=== PATIENT | female | born 1970 | race African-American/Black ===

== ENCOUNTER 2019-05-14 17:28 | Emergency (ER) | payer BC, MEDICARE, SELFPAY ==
[2019-05-14 17:38] VITALS: BP 131/60; PULSE 96; RESP 20; TEMP 36.4; O2SAT 100
--- NOTE | 2019-05-14 17:56 | ED.EYEPROB ---
HPI - Eye Problem General Chief complaint: Eye Problems Stated complaint: eye irritation Time Seen by Provider: 05/14/19 17:56 Source: patient and RN notes reviewed History of Present Illness HPI Narrative: Patient is a 48-year-old female presents the urgent care with complaints of right eye irritation, redness, itchiness. Patient states it started approximately 2 hours ago. Denies any known trauma or injury. Denies any known foreign body. Denies any matting or changes in vision. No other acute complaints. No acute distress noted. Patient read the plan of care. Related Data Home Medications Medication Instructions Recorded Confirmed exenatide microspheres [Bydureon 2 mg SUBCUT WEEKLY 03/05/19 05/14/19 BCise] ferrous sulfate 325 mg PO DAILY 03/05/19 05/14/19 insulin glargine U-300 conc 70 unit SUBCUT DAILY 03/05/19 05/14/19 [[employer] SoloStar U-300 Insulin] lisinopril-hydrochlorothiazide 1 tablet PO DAILY 03/05/19 05/14/19 metformin 1,000 mg PO BID 03/05/19 05/14/19 simvastatin 40 mg PO DAILY 03/05/19 05/14/19 Allergies Allergy/AdvReac Type Severity Reaction Status Date / Time Penicillins Allergy Unknown ITCHING Verified 05/14/19 17:43 Sulfa (Sulfonamide Allergy Unknown Unknown Verified 05/14/19 17:43 Antibiotics) Review of Systems Review of Systems: Narrative: CONSTITUTIONAL: Denies fever, chills, or sweats. EYES: Reports of right eye redness and itchiness ENT: Denies rhinorrhea, congestion, sore throat, or otalgia. CARDIOVASCULAR: Denies chest pain, palpitations, or edema. RESPIRATORY: Denies cough or dyspnea. GASTROINTESTINAL: Denies abdominal pain, nausea, vomiting, or diarrhea. GENITOURINARY: Denies dysuria or hematuria. SKIN: Denies rash or itching. MUSCULOSKELETAL: Denies back pain, joint pain, or myalgia. NEUROLOGIC: Denies headache, numbness, or weakness. [facility] Social History Social History Smoking status: Never smoker Alcohol intake: never Comments At the time of my signature, I reviewed and agree with the nursing past medical, surgical, social, and family history. There is no relevant family history pertinent to the patient complaint. Exam Narrative: Exam Narrative: GENERAL: This is a well-nourished, well-developed patient, in no apparent distress. HEAD: normocephalic, atraumatic. EYES: PERRL. Sclera clear/white. Vision is grossly intact. Mild injected right conjunctive a without obvious trauma or injury or foreign body. No hordeolum noted. No drainage noted. EARS: External ears normal NOSE: External nose normal with no obvious nasal discharge THROAT: Mucous membranes moist NECK: Neck supple CARDIOVASCULAR: Regular rate and rhythm without murmurs, gallops, or rubs. RESPIRATORY: Clear to auscultation. Breath sounds equal bilaterally. No wheezes, rales, or rhonchi. SKIN: warm, intact with no suspicious lesions or rash, good texture and turgor. NEURO: awake, alert, and oriented to person, place and time. There were no obvious focal neurologic abnormalities. EXTREMITIES: No clubbing, cyanosis, or edema. Course Vital Signs Vital signs: Vital Signs Temperature 97.5 F L 05/14/19 17:38 Pulse Rate 96 05/14/19 17:38 Respiratory Rate 05/14/19 17:38 Blood Pressure 131/60 05/14/19 17:38 Pulse Oximetry 100 05/14/19 17:38 Temperature 97.5 F L 05/14/19 17:38 Pulse Rate 96 05/14/19 17:38 Respiratory Rate 20 05/14/19 17:38 Blood Pressure 131/60 05/14/19 17:38 Pulse Oximetry 100 05/14/19 17:38 Reviewed MDM - Eye Problem MDM Narrative Medical decision making narrative: Advised the patient to use eyedrops to the right eye as directed. Be sure to clean the tip off with an alcohol swab in between applications. May use Claritin or Benadryl as needed for itchiness or irritation. Try not to rub the eye. May use warm compress to the right eye as needed. Follow-up with PCP within 2 to 5 days if worsenin
== END 2019-05-14 18:08 | disposition home or self-care (01) ==
PROVIDERS: Emergency Provider Nurse Practitioner Family
DX: H10.9 Unspecified conjunctivitis (principal); E78.00 Pure hypercholesterolemia, unspecified; I10 Essential (primary) hypertension; E11.9 Type 2 diabetes mellitus without complications
CPT/HCPCS: 99213; G0463

== ENCOUNTER 2021-04-22 13:22 | Emergency (ER) | payer BC, MEDICARE, SELFPAY ==
[2021-04-22 13:32] VITALS: BP 154/86; PULSE 97; RESP 16; TEMP 36.4; O2SAT 100
--- NOTE | 2021-04-22 13:38 | ED.URI ---
HPI - URI/Sore Throat General Chief Complaint: Upper Respiratory Infection Stated Complaint: Cough/congestion Time Seen by Provider: 04/22/21 13:53 Source: patient and RN notes reviewed Mode of arrival: ambulatory Limitations: no limitations History of Present Illness HPI Narrative: 50-year-old female presents with concern for cough, congestion, body aches for 2 to 3 days. Reports her daughter just tested positive for Covid. Reports she has been immunized and booster. Reports her booster was approximately 1 week ago. Reports has been taking Janiya ALLEN elicited complaint: cough and sore throat Related Data Home Medications Medication Instructions Recorded Confirmed exenatide microspheres [Bydureon 2 mg SUBCUT WEEKLY 03/05/19 05/14/19 BCise] ferrous sulfate 325 mg PO DAILY 03/05/19 05/14/19 insulin glargine U-300 conc 70 unit SUBCUT DAILY 03/05/19 05/14/19 [Toujeo SoloStar U-300 Insulin] metformin 1,000 mg PO BID 03/05/19 05/14/19 simvastatin 40 mg PO DAILY 03/05/19 05/14/19 glimepiride mg 04/22/21 hydrochlorothiazide 04/22/21 losartan 04/22/21 pantoprazole PO 04/22/21 Allergies Allergy/AdvReac Type Severity Reaction Status Date / Time Penicillins Allergy Unknown ITCHING Verified 04/22/21 13:37 Sulfa (Sulfonamide Allergy Unknown Unknown Verified 04/22/21 13:37 Antibiotics) Review of Systems Review of Systems: CONSTITUTIONAL: Reports malaise. Denies chills, sweats, or fever. EYES: Denies visual changes, redness, or discharge. ENT: Denies rhinorrhea, congestion, sinus pain, otalgia and sore throat. CARDIOVASCULAR: Denies chest pain, palpitations, or edema. RESPIRATORY: Reports cough. Denies dyspnea. GASTROINTESTINAL: Denies abdominal pain, nausea, vomiting, diarrhea SKIN: Denies rash or itching. MUSCULOSKELETAL: Reports myalgia. NEUROLOGIC: Denies headache. All systems reviewed & are unremarkable except as noted in HPI and below PMFSH Social History Social History Smoking status: Never smoker Alcohol intake: never Comments At time of signature, agree with nursing past medical, surgical, social and family history. There is no relevant family history pertinent to the presenting complaint Exam Narrative: GENERAL: Well-appearing, well-nourished, and in no acute distress. HEAD: Normocephalic EYES: PERRLA, conjunctivae clear ENT: Nares clear. Mucous membranes moist. TM pearly mcleod with dull light reflex bilaterally; no tragal tenderness. Oropharynx not erythematous without lesions. Tonsils not enlarged and without exudate, no drooling, no hoarseness, no trismus, uvula midline. NECK: Supple. No lymphadenopathy CHEST: Clear to auscultation, breath sounds equal. No wheezing, rhonchi, rales, or stridor. No respiratory distress, speaks in full sentences. HEART: Regular rate and rhythm. No murmur heard. SKIN: Warm, dry, no rash. NEURO: Alert and oriented x3. PSYCH: Normal mood and affect Course Course Emergency Course: Patient is aware of diagnosis, understands and agrees to treatment plan. Anticipatory guidance given. Patient agrees to follow-up as directed and is aware of reasons to seek care at the emergency department. Portions of this record may have been created with voice recognition software Level of Care: Express Care Visit Vital Signs Vital signs: Vital Signs Temperature 97.5 F L 04/22/21 13:32 Pulse Rate 97 04/22/21 13:32 Respiratory Rate 16 04/22/21 13:32 Blood Pressure 154/86 H 04/22/21 13:32 Pulse Oximetry 100 04/22/21 13:32 Temperature 97.5 F L 04/22/21 13:32 Pulse Rate 97 04/22/21 13:32 Respiratory Rate 16 04/22/21 13:32 Blood Pressure 154/86 H 04/22/21 13:32 Pulse Oximetry 100 04/22/21 13:32 Reviewed. MDM - URI/Sore Throat MDM Narrative Medical decision making narrative: Differential diagnosis considered: Carballo virus, strep pharyngitis, allergic rhinitis, upper respiratory tract in
== END 2021-04-22 14:19 | disposition home or self-care (01) ==
PROVIDERS: Emergency Provider Nurse Practitioner; PCP Family Medicine
DX: J06.9 Acute upper respiratory infection, unspecified (principal); Z20.822 Contact with and (suspected) exposure to COVID-19; E78.00 Pure hypercholesterolemia, unspecified; I10 Essential (primary) hypertension; E11.9 Type 2 diabetes mellitus without complications
CPT/HCPCS: 87426; 99213; C9803; G0463

== ENCOUNTER 2021-10-13 14:49 | Emergency (ER) | payer OTHER, SELFPAY ==
[2021-10-13 14:58] VITALS: BP 154/103; PULSE 85; RESP 16; TEMP 36.6; O2SAT 100
[2021-10-13 15:03] VITALS: BP 154/103; PULSE 85; RESP 16; TEMP 36.6; O2SAT 100
--- NOTE | 2021-10-13 15:05 | ED.GENADULT ---
HPI - General Adult General Chief complaint: Extremity Problem,Nontraumatic Stated complaint: hip pain Time Seen by Provider: 10/13/21 15:05 Source: patient Mode of arrival: ambulatory Limitations: no limitations History of Present Illness HPI narrative: Patient presents today complaining of low back pain radiating to her right hip x2 days. Pain began after she had been moving heavy objects at home. Denies numbness or tingling, loss of bowel or bladder control. She currently rates her pain 6/10 and has tried no medication for symptoms prior to arrival. Patient does have a prescription for Robaxin at home for previous shoulder issue, but has not been taking it. Believes she has 1 refill left. Related Data Home Medications Medication Instructions Recorded Confirmed exenatide microspheres 2 mg/0.85 2 mg subcut WEEKLY 03/05/19 05/14/19 mL subcutaneous auto-injector ([employer]duBio[employer] BCise) ferrous sulfate 325 mg (65 mg 325 mg PO DAILY 03/05/19 05/14/19 iron) tablet insulin glargine U-300 conc 300 70 unit subcut DAILY 03/05/19 05/14/19 unit/mL (1.5 mL) subcutaneous pen ([employer] SoloStar U-300 Insulin) metformin 500 mg tablet,extended 1,000 mg PO BID 03/05/19 05/14/19 release 24 hr simvastatin 40 mg tablet 40 mg PO DAILY 03/05/19 05/14/19 glimepiride 4 mg tablet mg 04/22/21 hydrochlorothiazide 25 mg tablet 04/22/21 losartan 50 mg tablet 04/22/21 pantoprazole 40 mg tablet,delayed PO 04/22/21 release Allergies Allergy/AdvReac Type Severity Reaction Status Date / Time Penicillins Allergy Unknown ITCHING Verified 04/22/21 13:37 Sulfa (Sulfonamide Allergy Unknown Unknown Verified 04/22/21 13:37 Antibiotics) Review of Systems Review of Systems: CONSTITUTIONAL: Denies body aches, fever, chills, or sweats. EYES: Denies visual changes, redness, or discharge. ENT: Denies rhinorrhea, congestion, sore throat, or otalgia. CARDIOVASCULAR: Denies chest pain, palpitations, or edema. RESPIRATORY: Denies cough or dyspnea. GASTROINTESTINAL: Denies abdominal pain, nausea, vomiting, or diarrhea. GENITOURINARY: Denies dysuria or hematuria. SKIN: Denies rash, itching, or wounds. MUSCULOSKELETAL: + Low back pain, right hip pain NEUROLOGIC: Denies headache, numbness, tingling, or weakness. PSYCH: Denies depression or anxiety. [facility] Past Medical History Medical History (Updated 10/13/21 @ 15:23 by Robyn Burden, [facility], ) Diabetes Social History Social History Smoking status: Never smoker Alcohol intake: never Comments At time of signature, I have reviewed and agree with nursing past medical, surgical, social and family history unless otherwise noted. Please see nursing chart for further information. There is no relevant family history pertinent to the presenting complaint Exam Narrative: GENERAL: Well-appearing, well-nourished, and in no acute distress. HEAD: Normocephalic, atraumatic. EYES: EOMI. No redness or drainage. Conjunctivae normal. ENT: Mucous membranes pink and moist. NECK: Normal AROM. CHEST: No respiratory distress. MUSCULOSKELETAL: No bony tenderness of the spine. Patient has right lower lumbar paraspinal muscle tenderness that extends to the right SI joint and down the lateral right hip to the right thigh. Distal sensation intact bilaterally. Saddle sensation intact. Capillary refill normal. Pedal pulses normal. Dorsiflexion and plantarflexion equal and strong against resistance. EXTREMITIES: Normal range of motion. No edema. SKIN: Warm, dry, no rash. Capillary refill normal. Normal skin turgor. NEURO: No focal deficits. Alert and oriented x3. Gait steady. PSYCH: Normal affect. No signs of depression or anxiety. Course Course Level of Care: Express Care Visit Vital Signs Vital signs: Vital Signs Temperature 97.8 F 10/13/21 14:58 Pulse Rate 85 10/13/21 14:58 Respiratory Rate 16 10/13/21 14:58
== END 2021-10-13 15:30 | disposition home or self-care (01) ==
PROVIDERS: Emergency Provider Nurse Practitioner; PCP Family Medicine
DX: M54.41 Lumbago with sciatica, right side (principal); E11.9 Type 2 diabetes mellitus without complications
CPT/HCPCS: 99213; G0463

== ENCOUNTER 2021-11-09 10:02 | Emergency (ER) | payer OTHER, SELFPAY ==
[2021-11-09 10:18] VITALS: BP 179/95; PULSE 77; RESP 20; TEMP 36.3; O2SAT 100
[2021-11-09 10:26] VITALS: BP 179/95; PULSE 77; RESP 20; TEMP 36.3; O2SAT 100
--- NOTE | 2021-11-09 10:37 | ED.GENADULT ---
HPI - General Adult General Chief complaint: Extremity Problem,Nontraumatic Stated complaint: Left leg Cramps Time Seen by Provider: 11/09/21 10:18 Source: patient Mode of arrival: ambulatory Limitations: no limitations History of Present Illness HPI narrative: Patient presents today complaining of a 2-day history of painful cramping to her left thigh that is intermittent. Patient states, I can feel the nerve jumping . Patient states at times the pain radiates to her toes as well. She currently rates her pain 7/10 at rest, which increases when she walks or moves around. States the pain decreases when she pinches the flash and her very inner thigh. She currently takes naproxen and Robaxin, which does provide some mild relief. Patient has been diagnosed with sciatica in the past. She does report some mild low back pain that has occurred along with her leg pain. Related Data Home Medications Medication Instructions Recorded Confirmed ferrous sulfate 325 mg (65 mg 325 mg PO DAILY 03/05/19 11/09/21 iron) tablet metformin 500 mg tablet,extended 1,000 mg PO BID 03/05/19 11/09/21 release 24 hr simvastatin 40 mg tablet 40 mg PO DAILY 03/05/19 11/09/21 glimepiride 4 mg tablet 4 mg PO BID 04/22/21 11/09/21 hydrochlorothiazide 25 mg tablet 25 mg PO DAILY 04/22/21 11/09/21 losartan 50 mg tablet 50 mg PO DAILY 04/22/21 11/09/21 pantoprazole 40 mg tablet,delayed 40 mg PO DAILY 04/22/21 11/09/21 release gabapentin 100 mg capsule 100 mg PO HS 11/09/21 11/09/21 methocarbamol 750 mg tablet 750 mg PO TID PRN Muscle Spasm 11/09/21 11/09/21 naproxen 500 mg tablet 500 mg PO DAILY 11/09/21 11/09/21 semaglutide 0.25 mg or 0.5 mg (2 0.25 mg subcut WEEKLY 11/09/21 11/09/21 mg/1.5 mL) subcutaneous pen injector (Ozempic) Allergies Allergy/AdvReac Type Severity Reaction Status Date / Time Penicillins Allergy Unknown ITCHING Verified 11/09/21 10:18 Sulfa (Sulfonamide Allergy Unknown Unknown Verified 11/09/21 10:18 Antibiotics) Review of Systems Review of Systems: CONSTITUTIONAL: Denies body aches, fever, chills, or sweats. EYES: Denies visual changes, redness, or discharge. ENT: Denies rhinorrhea, congestion, sore throat, or otalgia. CARDIOVASCULAR: Denies chest pain, palpitations, or edema. RESPIRATORY: Denies cough or dyspnea. GASTROINTESTINAL: Denies abdominal pain, nausea, vomiting, or diarrhea. GENITOURINARY: Denies dysuria or hematuria. SKIN: Denies rash, itching, or wounds. MUSCULOSKELETAL: Denies joint pain. + Left leg cramping, low back pain NEUROLOGIC: Denies headache, numbness, tingling, or weakness. PSYCH: Denies depression or anxiety. [facility] Past Medical History Medical History (Updated 11/09/21 @ 10:46 by Robyn Burden, [employer], ) Diabetes High cholesterol Social History Social History Smoking status: Never smoker Alcohol intake: never Comments At time of signature, I have reviewed and agree with nursing past medical, surgical, social and family history unless otherwise noted. Please see nursing chart for further information. There is no relevant family history pertinent to the presenting complaint Exam Narrative: GENERAL: Well-appearing, well-nourished, and in no acute distress. HEAD: Normocephalic, atraumatic. EYES: EOMI. No redness or drainage. Conjunctivae normal. ENT: Mucous membranes pink and moist. NECK: Normal AROM. CHEST: No respiratory distress. MUSCULOSKELETAL: No bony tenderness of the spine. Left lower lumbar paraspinal muscle tenderness that extends to the left buttock and around to the left lateral hip. Mild muscular tenderness to the left anterior, lateral, and medial thigh. Distal sensation intact. Saddle sensation intact. Capillary refill normal. Pedal pulse normal. Color normal. -homans sign. No tenderness of the calf or popliteal fossa. No edema to the leg noted. EXTREMITIES: Normal range of motion.
== END 2021-11-09 10:49 | disposition home or self-care (01) ==
PROVIDERS: Emergency Provider Nurse Practitioner; PCP Family Medicine
DX: M54.42 Lumbago with sciatica, left side (principal); E11.9 Type 2 diabetes mellitus without complications; E78.00 Pure hypercholesterolemia, unspecified
CPT/HCPCS: 99213; G0463

== ENCOUNTER 2022-03-16 14:00 | Emergency (ER) | payer OTHER, SELFPAY ==
[2022-03-16 14:06] VITALS: BP 157/87; PULSE 108; RESP 18; TEMP 37.6; O2SAT 99
--- NOTE | 2022-03-16 14:22 | ED.URI ---
HPI - URI/Sore Throat General Chief Complaint: Upper Respiratory Infection Stated Complaint: COUGH/HEADACHE/BODY ACHES/DIARRHEA Time Seen by Provider: 03/16/22 14:23 Source: patient, RN notes reviewed and old records reviewed Mode of arrival: ambulatory Limitations: no limitations History of Present Illness HPI Narrative: 51-year-old female presents to the [facility] with complaints of cough, headache, body aches and diarrhea. Cough, headache, body aches started Tuesday, 2 days ago. Diarrhea started today. Had taking Coricidin HBP P 1 time. Just got back from [place]. Related Data Home Medications Medication Instructions Recorded Confirmed ferrous sulfate 325 mg (65 mg 325 mg PO DAILY 03/05/19 03/16/22 iron) tablet metformin 500 mg tablet,extended 1,000 mg PO BID 03/05/19 03/16/22 release 24 hr simvastatin 40 mg tablet 40 mg PO DAILY 03/05/19 03/16/22 glimepiride 4 mg tablet 4 mg PO BID 04/22/21 03/16/22 hydrochlorothiazide 25 mg tablet 25 mg PO DAILY 04/22/21 03/16/22 losartan 50 mg tablet 50 mg PO DAILY 04/22/21 03/16/22 pantoprazole 40 mg tablet,delayed 40 mg PO DAILY 04/22/21 03/16/22 release gabapentin 100 mg capsule 100 mg PO HS 11/09/21 03/16/22 methocarbamol 750 mg tablet 750 mg PO TID PRN Muscle Spasm 11/09/21 03/16/22 naproxen 500 mg tablet 500 mg PO DAILY 11/09/21 03/16/22 semaglutide 0.25 mg or 0.5 mg (2 0.25 mg subcut WEEKLY 11/09/21 03/16/22 mg/1.5 mL) subcutaneous pen injector (Ozempic) Allergies Allergy/AdvReac Type Severity Reaction Status Date / Time Penicillins Allergy Unknown ITCHING Verified 03/16/22 14:23 Sulfa (Sulfonamide Allergy Unknown Unknown Verified 03/16/22 14:23 Antibiotics) Review of Systems Review of Systems: All systems reviewed & are unremarkable except as noted in HPI and below Constitutional: Constitutional: Reports as per HPI, Reports body ache(s), Reports fatigue and Reports headache(s) Eyes: Eyes: Reports no additional eye complaints ENT: Reports system reviewed and no additional complaints, except as documented and Reports nasal discharge Cardiovascular: Cardiovascular: Reports no additional cardiovascular complaints, Denies chest pain and Denies dyspnea Respiratory: Respiratory: Reports as per HPI, Denies chest congestion, Reports cough and Denies dyspnea Gastrointestinal: Gastrointestinal: Reports no additional gastrointestinal complaints Musculoskeletal: Musculoskeletal: Reports no additional musculoskeletal complaints Integumentary/Breasts: Skin/Breast: Reports system reviewed and no additional complaints, except as docu Neurologic: Reports system reviewed and no additional complaints, except as documented Psychiatric: Psychiatric: Reports no additional psychiatric complaints Allergic/Immunologic: Allergic/Immunologic: Reports no additional allergic/immunologic complaints PMFSH Past Medical History Medical History (Updated 03/16/22 @ 14:36 by Michaela Vergara APRN) Anemia Diabetes H/O gastroesophageal reflux (GERD) High cholesterol History of high blood pressure Social History Social History Smoking status: Never smoker Alcohol intake: never Comments At the time of my signature, I reviewed and agree with the nursing past medical, surgical, social, and family history. There is no relevant family history pertinent to the patient complaint. Exam Const: General: cooperative, healthy appearing, comfortable, no acute distress, well developed, alert and average body habitus Nutritional Appearance: well nourished and obese Orientation/consciousness: patient oriented x3 Limitations: no limitations HENMT: Head: normal to inspection Ears: hearing grossly normal bilaterally Face/Nose/Sinus: Normal external nose present, Normal nares present, Normal nasal mucous membranes and turbinates present and normal facial exam Face and sinus: normal facial exam Mouth: Yes Normal oral and pa
== END 2022-03-16 14:53 | disposition home or self-care (01) ==
PROVIDERS: Emergency Provider Nurse Practitioner; PCP Family Medicine
DX: J01.90 Acute sinusitis, unspecified (principal); E11.9 Type 2 diabetes mellitus without complications
CPT/HCPCS: 87804; 99213; G0463

== ENCOUNTER 2022-10-04 13:09 | Emergency (ER) | payer OTHER, SELFPAY ==
--- NOTE | ~2022-10-04 | XR_ITS ---
Right Knee Technique: AP, lateral, and sunrise views were obtained. Clinical History: Pain Findings: No fracture or dislocation is seen. Osseous alignment is anatomic. There is minimal tricomp artmental degenerative spurring. Soft tissues are unremarkable. No joint effusion is seen. Impression: Minimal tricompartmental degenerative spurring. Reviewed, dictated and finalized at [facility]. Impression: Minimal tricompartmental degenerative spurring.
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
[2022-10-04 13:33] VITALS: BP 134/92; PULSE 85; RESP 16; TEMP 36.2; O2SAT 100
[2022-10-04 13:38] VITALS: BP 134/92; PULSE 85; RESP 16; TEMP 36.2; O2SAT 100
== END 2022-10-04 13:56 | disposition home or self-care (01) ==
PROVIDERS: Emergency Provider Nurse Practitioner Family
DX: S83.421A Sprain of lateral collateral ligament of right knee, initial encounter (principal); X50.9XXA Other and unspecified overexertion or strenuous movements or postures, initial encounter; M17.11 Unilateral primary osteoarthritis, right knee; E11.9 Type 2 diabetes mellitus without complications; K21.9 Gastro-esophageal reflux disease without esophagitis; E78.00 Pure hypercholesterolemia, unspecified; I10 Essential (primary) hypertension; D64.9 Anemia, unspecified; Z79.84 Long term (current) use of oral hypoglycemic drugs
CPT/HCPCS: 73562; 99213; G0463

== ENCOUNTER 2022-12-14 14:26 | Emergency (ER) | payer OTHER, SELFPAY ==
--- NOTE | 2022-12-14 14:29 | ED.SKABFB ---
HPI - Skin/Abscess/Foreign Bdy General Chief complaint: Skin/Abscess/Foreign Body Stated complaint: Hives Time Seen by Provider: 12/14/22 14:28 Source: patient Mode of arrival: ambulatory Limitations: no limitations History of Present Illness HPI narrative: Patient is a 52 y/o F that presents with bumps to left arm that started last night. States she got a pneumonia vaccine last in left arm. Patient denies any shortness of or rash to the rest of the week. Does report mild itching but has not applied any creams or taken anything orally. Patient states she was outside last night and take top and when she came inside she noticed the bumps. Denies seen insects land and bite her. Related Data Home Medications Medication Instructions Recorded Confirmed ferrous sulfate 325 mg (65 mg 325 mg PO DAILY 03/05/19 12/14/22 iron) tablet metformin 500 mg tablet,extended 1,000 mg PO BID 03/05/19 12/14/22 release 24 hr simvastatin 40 mg tablet 40 mg PO DAILY 03/05/19 12/14/22 glimepiride 4 mg tablet 4 mg PO BID 04/22/21 12/14/22 hydrochlorothiazide 25 mg tablet 25 mg PO DAILY 04/22/21 12/14/22 losartan 50 mg tablet 50 mg PO DAILY 04/22/21 12/14/22 pantoprazole 40 mg tablet,delayed 40 mg PO DAILY 04/22/21 12/14/22 release gabapentin 100 mg capsule 100 mg PO HS 11/09/21 12/14/22 dulaglutide 1.5 mg/0.5 mL 1.5 mg subcut DIRECTED 12/14/22 12/14/22 subcutaneous pen injector (Trulicity) hydroxyzine HCl 50 mg tablet 50 mg PO DIRECTED 12/14/22 12/14/22 insulin degludec 200 unit/mL (3 200 unit subcut DIRECTED 12/14/22 12/14/22 mL) subcutaneous pen (Tresiba FlexTouch U-200 insulin) Allergies Allergy/AdvReac Type Severity Reaction Status Date / Time Penicillins Allergy Unknown ITCHING Verified 12/14/22 14:30 Sulfa (Sulfonamide Allergy Unknown Unknown Verified 12/14/22 14:30 Antibiotics) Review of Systems Review of Systems: All systems reviewed & are unremarkable except as noted in HPI and below Constitutional: Constitutional: Denies body ache(s), Denies chills, Denies fatigue, Denies fever(s), Denies headache(s), Denies malaise and Denies weakness Eyes: Eyes: Denies blurry vision, Denies irritation and Denies loss of vision ENT: Denies otalgia, Denies headache(s), Denies nasal discharge, Denies sinus pain and Denies sore throat Cardiovascular: Cardiovascular: Denies chest pain, Denies irregular heart rhythm and Denies dyspnea Respiratory: Respiratory: Denies dyspnea Gastrointestinal: Gastrointestinal: Denies abdominal pain, Denies melena, Denies hematochezia, Denies diarrhea, Denies nausea and Denies vomiting Musculoskeletal: Musculoskeletal: Denies back pain, Denies myalgias and Denies arthralgias Integumentary/Breasts: Skin/Breast: Reports pruritus, Denies rash and Reports sores Neurologic: Denies headache(s), Denies loss of vision and Denies weakness Psychiatric: Psychiatric: Reports no additional psychiatric complaints Endocrine: Endocrine: Denies fatigue PMFSH Past Medical History Medical History Anemia Diabetes H/O gastroesophageal reflux (GERD) High cholesterol History of high blood pressure Social History Social History Smoking status: Never smoker Alcohol intake: never Comments At time of signature, agree with nursing past medical, surgical, social and family history. There is no relevant family history pertinent to the presenting complaint. Exam Const: General: cooperative, healthy appearing, comfortable, no acute distress and well nourished Nutritional Appearance: well nourished Orientation/consciousness: patient oriented x3 Limitations: no limitations HENMT: Head: normal to inspection, normocephalic and atraumatic Ears: hearing grossly normal bilaterally and external ears normal Face/Nose/Sinus: Normal external nose present, normal facial exam and f
[2022-12-14 14:33] VITALS: BP 155/93; PULSE 83; RESP 16; TEMP 36.6; O2SAT 100
[2022-12-14 14:34] VITALS: BP 155/93; PULSE 83; RESP 16; TEMP 36.6; O2SAT 100
== END 2022-12-14 14:49 | disposition home or self-care (01) ==
PROVIDERS: Emergency Provider Nurse Practitioner Family
DX: S40.862A Insect bite (nonvenomous) of left upper arm, initial encounter (principal); W57.XXXA Bitten or stung by nonvenomous insect and other nonvenomous arthropods, initial encounter; D64.9 Anemia, unspecified; E11.9 Type 2 diabetes mellitus without complications; Z79.4 Long term (current) use of insulin; Z79.84 Long term (current) use of oral hypoglycemic drugs; K21.9 Gastro-esophageal reflux disease without esophagitis; E78.00 Pure hypercholesterolemia, unspecified; I10 Essential (primary) hypertension
CPT/HCPCS: 99211; G0463

== ENCOUNTER 2023-05-09 19:17 | Emergency (ER) | payer MEDICARE, SELFPAY ==
[2023-05-09 19:22] VITALS: BP 148/67; PULSE 107; RESP 20; TEMP 37.1; O2SAT 98
--- NOTE | 2023-05-09 19:26 | ED.URI ---
HPI - URI/Sore Throat General Chief Complaint: Upper Respiratory Infection Stated Complaint: Body Aches/Cough/Vomiting Time Seen by Provider: 05/09/23 19:33 Source: patient and RN notes reviewed Mode of arrival: ambulatory Limitations: no limitations History of Present Illness HPI Narrative: 52-year-old female presents with concern for body aches, cough, diarrhea, vomiting that started yesterday. She has been taking Coricidin. She denies shortness of breath. MD elicited complaint: fever and cough Related Data Home Medications Medication Instructions Recorded Confirmed ferrous sulfate 325 mg (65 mg 325 mg PO DAILY 03/05/19 05/09/23 iron) tablet metformin 500 mg tablet,extended 1,000 mg PO BID 03/05/19 05/09/23 release 24 hr simvastatin 40 mg tablet 40 mg PO DAILY 03/05/19 05/09/23 glimepiride 4 mg tablet 4 mg PO BID 04/22/21 05/09/23 hydrochlorothiazide 25 mg tablet 25 mg PO DAILY 04/22/21 05/09/23 losartan 50 mg tablet 50 mg PO DAILY 04/22/21 05/09/23 pantoprazole 40 mg tablet,delayed 40 mg PO DAILY 04/22/21 05/09/23 release gabapentin 100 mg capsule 100 mg PO HS 11/09/21 05/09/23 dulaglutide 1.5 mg/0.5 mL 1.5 mg subcut DIRECTED 12/14/22 05/09/23 subcutaneous pen injector (Trulicity) hydroxyzine HCl 50 mg tablet 50 mg PO DIRECTED 12/14/22 05/09/23 insulin degludec 200 unit/mL (3 200 unit subcut DIRECTED 12/14/22 05/09/23 mL) subcutaneous pen (Tresiba FlexTouch U-200 insulin) Allergies Allergy/AdvReac Type Severity Reaction Status Date / Time Penicillins Allergy Unknown ITCHING Verified 05/09/23 19:23 Sulfa (Sulfonamide Allergy Unknown Unknown Verified 05/09/23 19:23 Antibiotics) Review of Systems Review of Systems: CONSTITUTIONAL: Reports malaise, fever. EYES: Denies visual changes, redness, or discharge. ENT: Reports rhinorrhea, congestion. Denies sinus pain, otalgia and sore throat. CARDIOVASCULAR: Denies chest pain, palpitations, or edema. RESPIRATORY: Reports cough. Denies dyspnea. GASTROINTESTINAL: Denies abdominal pain. Reports nausea, vomiting, diarrhea SKIN: Denies rash or itching. MUSCULOSKELETAL: Reports myalgia. NEUROLOGIC: Reports headache. All systems reviewed & are unremarkable except as noted in HPI and below PMFSH Past Medical History Medical History Anemia Diabetes H/O gastroesophageal reflux (GERD) High cholesterol History of high blood pressure Social History Social History Smoking status: Never smoker Alcohol intake: never Comments At time of signature, agree with nursing past medical, surgical, social and family history. There is no relevant family history pertinent to the presenting complaint Exam Narrative: GENERAL: Nontoxic-appearing, well-nourished, and in no acute distress. HEAD: Normocephalic EYES: PERRLA, conjunctivae clear ENT: Nares clear. Mucous membranes moist. TM pearly mcleod with sharp light reflex bilaterally; no tragal tenderness. Oropharynx not erythematous without lesions. Tonsils not enlarged and without exudate, no drooling, no hoarseness, no trismus, uvula midline. NECK: Supple. No lymphadenopathy CHEST: Clear to auscultation, breath sounds equal. No wheezing, rhonchi, rales, or stridor. No respiratory distress, speaks in full sentences. HEART: Regular rate and rhythm. No murmur heard. SKIN: Warm, dry, no rash. NEURO: Alert and oriented x3. PSYCH: Normal mood and affect Course Course Emergency Course: Patient is aware of diagnosis, understands and agrees to treatment plan. Anticipatory guidance given. Patient agrees to follow-up as directed and is aware of reasons to seek care at the emergency department. Portions of this record may have been created with voice recognition software Level of Care: Express Care Visit Vital Signs Vital signs: Reviewed. MDM - URI/Sore Throat MDM Narrat
== END 2023-05-09 19:45 | disposition home or self-care (01) ==
PROVIDERS: Emergency Provider Nurse Practitioner; PCP Physician Assistant
DX: J10.1 Influenza due to other identified influenza virus with other respiratory manifestations (principal); Z20.822 Contact with and (suspected) exposure to COVID-19; E11.9 Type 2 diabetes mellitus without complications; K21.9 Gastro-esophageal reflux disease without esophagitis; E78.00 Pure hypercholesterolemia, unspecified; I10 Essential (primary) hypertension; D64.9 Anemia, unspecified; Z79.4 Long term (current) use of insulin; Z79.84 Long term (current) use of oral hypoglycemic drugs
CPT/HCPCS: 87426; 87804; 99213; G0463

== ENCOUNTER 2023-07-13 12:26 | Emergency (ER) | payer MEDICARE, SELFPAY ==
[2023-07-13 12:33] VITALS: BP 146/65; PULSE 81; RESP 18; TEMP 36.3; O2SAT 100
--- NOTE | 2023-07-13 12:40 | ED.GENADULT ---
HPI - General Adult General Chief complaint: Skin/Abscess/Foreign Body Stated complaint: Insect Bite Source: patient, RN notes reviewed and old records reviewed Mode of arrival: ambulatory Limitations: no limitations History of Present Illness HPI narrative: 52-year-old female presents to [facility] with complaints possible insect bite to lower right leg this started 2-3 days ago. Patient states area is pruritic. Patient has tried [id number] medications with no relief. Related Data Home Medications Medication Instructions Recorded Confirmed ferrous sulfate 325 mg (65 mg 325 mg PO DAILY 03/05/19 07/13/23 iron) tablet metformin 500 mg tablet,extended 1,000 mg PO BID 03/05/19 07/13/23 release 24 hr simvastatin 40 mg tablet 40 mg PO DAILY 03/05/19 07/13/23 glimepiride 4 mg tablet 4 mg PO BID 04/22/21 07/13/23 hydrochlorothiazide 25 mg tablet 25 mg PO DAILY 04/22/21 07/13/23 losartan 50 mg tablet 50 mg PO DAILY 04/22/21 07/13/23 pantoprazole 40 mg tablet,delayed 40 mg PO DAILY 04/22/21 07/13/23 release gabapentin 100 mg capsule 100 mg PO HS 11/09/21 07/13/23 dulaglutide 1.5 mg/0.5 mL 1.5 mg subcut DIRECTED 12/14/22 07/13/23 subcutaneous pen injector (Trulicity) hydroxyzine HCl 50 mg tablet 50 mg PO DIRECTED 12/14/22 07/13/23 insulin degludec 200 unit/mL (3 200 unit subcut DIRECTED 12/14/22 07/13/23 mL) subcutaneous pen (Tresiba FlexTouch U-200 insulin) Allergies Allergy/AdvReac Type Severity Reaction Status Date / Time Penicillins Allergy Unknown ITCHING Verified 07/13/23 12:43 Sulfa (Sulfonamide Allergy Unknown Unknown Verified 07/13/23 12:43 Antibiotics) Review of Systems Constitutional: Constitutional: Reports no additional constitutional complaints, Denies body ache(s), Denies chills, Denies fatigue, Denies fever(s) and Denies headache(s) Eyes: Eyes: Reports no additional eye complaints and Denies blurry vision ENT: Reports system reviewed and no additional complaints, except as documented, Denies vertigo, Denies dizziness, Denies ear discharge, Denies otalgia, Denies facial pain, Denies headache(s), Denies nasal congestion, Denies nasal discharge, Denies sinus pain, Denies sinus pressure and Denies sore throat Cardiovascular: Cardiovascular: Reports no additional cardiovascular complaints, Denies chest pain, Denies chest pain at rest, Denies rapid heart rate and Denies dyspnea Respiratory: Respiratory: Reports no additional respiratory complaints, Denies chest congestion, Denies cough, Denies pain on inspiration, Denies pain with cough and Denies dyspnea Gastrointestinal: Gastrointestinal: Denies abdominal pain, Denies diarrhea, Denies nausea and Denies vomiting Integumentary/Breasts: Skin/Breast: Reports as per HPI, Reports erythema, Denies rash and Reports wounds Neurologic: Reports system reviewed and no additional complaints, except as documented, Denies vertigo, Denies dizziness and Denies headache(s) Endocrine: Endocrine: Denies fatigue PMFSH Past Medical History Medical History Anemia Diabetes H/O gastroesophageal reflux (GERD) High cholesterol History of high blood pressure Social History Social History Smoking status: Never smoker Alcohol intake: never Comments At the time of my signature, I reviewed and agree with the nursing past medical, surgical, social, and family history. There is no relevant family history pertinent to the patient complaint. Exam Const: General: cooperative, healthy appearing, no acute distress and well nourished Nutritional Appearance: well nourished Orientation/consciousness: patient oriented x3 Limitations: no limitations HENMT: Head: normal to inspection and normocephalic Ears: external ears normal Face/Nose/Sinus: normal facial exam Face and sinus: normal facial exam Mouth: Yes Normal oral and palatal mucosa p
== END 2023-07-13 12:52 | disposition home or self-care (01) ==
PROVIDERS: Emergency Provider Registered Nurse; PCP Family Medicine
DX: S80.861A Insect bite (nonvenomous), right lower leg, initial encounter (principal); W57.XXXA Bitten or stung by nonvenomous insect and other nonvenomous arthropods, initial encounter; D64.9 Anemia, unspecified; E11.9 Type 2 diabetes mellitus without complications; Z79.4 Long term (current) use of insulin; Z79.84 Long term (current) use of oral hypoglycemic drugs; K21.9 Gastro-esophageal reflux disease without esophagitis; E78.00 Pure hypercholesterolemia, unspecified; I10 Essential (primary) hypertension
CPT/HCPCS: 99213; G0463

== ENCOUNTER 2023-12-26 10:54 | Emergency (ER) | payer MEDICARE, SELFPAY ==
--- NOTE | 2023-12-26 11:01 | ED.SKABFB ---
HPI - Skin/Abscess/Foreign Bdy General Chief complaint: Skin/Abscess/Foreign Body Stated complaint: Rash Time Seen by Provider: 12/26/23 11:31 Source: patient and RN notes reviewed Mode of arrival: ambulatory Limitations: no limitations History of Present Illness HPI narrative: 53-year-old female presents with concern for a T-bone some bilateral forearms. She reports she noticed some on Tuesday. She denies since and that may have glass technician changed in any way. Reports she recently had COVID and finished packs fluid, she finished on Tuesday. She denies swollen lips, swollen tongue, trouble breathing. She reports she had similar instances in the past and was told it was bites. Reports she spent time on her porch on Tuesday. MD complaint: rash Related Data Home Medications Medication Instructions Recorded Confirmed ferrous sulfate 325 mg (65 mg 325 mg PO DAILY 03/05/19 07/13/23 iron) tablet metformin 500 mg tablet,extended 1,000 mg PO BID 03/05/19 12/26/23 release 24 hr simvastatin 40 mg tablet 40 mg PO DAILY 03/05/19 12/26/23 glimepiride 4 mg tablet 4 mg PO BID 04/22/21 12/26/23 hydrochlorothiazide 25 mg tablet 25 mg PO DAILY 04/22/21 12/26/23 losartan 50 mg tablet 50 mg PO DAILY 04/22/21 12/26/23 pantoprazole 40 mg tablet,delayed 40 mg PO DAILY 04/22/21 12/26/23 release gabapentin 100 mg capsule 100 mg PO HS 11/09/21 12/26/23 dulaglutide 1.5 mg/0.5 mL 1.5 mg subcut DIRECTED 12/14/22 12/26/23 subcutaneous pen injector (Trulicity) hydroxyzine HCl 50 mg tablet 50 mg PO DIRECTED 12/14/22 12/26/23 insulin degludec 200 unit/mL (3 200 unit subcut DIRECTED 12/14/22 12/26/23 mL) subcutaneous pen (Tresiba FlexTouch U-200 insulin) Allergies Allergy/AdvReac Type Severity Reaction Status Date / Time Penicillins Allergy Unknown ITCHING Verified 12/26/23 11:12 Sulfa (Sulfonamide Allergy Unknown Itching Verified 12/26/23 11:12 Antibiotics) Review of Systems Review of Systems: CONSTITUTIONAL: Denies malaise, chills, sweats, or fever. EYES: Denies redness, or discharge. ENT: Denies rhinorrhea, congestion, swollen lips, swollen tongue CARDIOVASCULAR: Denies chest pain, palpitations, or edema. RESPIRATORY: Denies cough or dyspnea. GASTROINTESTINAL: Denies abdominal pain, nausea, vomiting SKIN: Reports itchy bumps on bilateral arms MUSCULOSKELETAL: Denies joint pain or myalgia. NEUROLOGIC: Denies headache. All systems reviewed & are unremarkable except as noted in HPI and below PMFSH Past Medical History Medical History Anemia Diabetes H/O gastroesophageal reflux (GERD) High cholesterol History of high blood pressure Social History Social History Smoking status: Never smoker Alcohol intake: never Comments At time of signature, agree with nursing past medical, surgical, social and family history. There is no relevant family history pertinent to the presenting complaint Exam Narrative: GENERAL: Well-appearing, well-nourished, and in no acute distress. HEAD: Normocephalic, atraumatic. EYES: PERRLA, conjunctivae clear, and EOMI. ENT: Mucous membranes moist. Oropharynx without edema, erythema or lesions. NECK: Supple. No lymphadenopathy CHEST: Clear to auscultation. No respiratory distress. HEART: Regular rate and rhythm. SKIN: Warm, dry. Scattered erythematous papules in clusters noted to bilateral arms NEURO: Alert and oriented x3. PSYCH: Normal mood and affect Course Course Emergency Course: Patient is aware of diagnosis, understands and agrees to treatment plan. Anticipatory guidance given. Patient agrees to follow-up as directed and is aware of reasons to seek care at the emergency department. Portions of this record may have been created with voice recognition software Level of Care: Express Care Visit Vital Signs Vital signs: Reviewed. MDM -
[2023-12-26 11:05] VITALS: BP 150/66; PULSE 82; RESP 20; TEMP 36.2; O2SAT 100
== END 2023-12-26 11:43 | disposition home or self-care (01) ==
PROVIDERS: Emergency Provider Nurse Practitioner; PCP Family Medicine
DX: R21 Rash and other nonspecific skin eruption (principal); E11.9 Type 2 diabetes mellitus without complications; K21.9 Gastro-esophageal reflux disease without esophagitis; E78.00 Pure hypercholesterolemia, unspecified; I10 Essential (primary) hypertension; D64.9 Anemia, unspecified
CPT/HCPCS: 99213; G0463